=== PATIENT | female | born 1995 | race African-American/Black ===

== ENCOUNTER 2020-03-04 20:31 | Emergency (ER) | payer MEDICAID | END 2020-03-05 01:02 | disposition home or self-care (01) | LOC: D.ER 20:31 → EDBD 20:31 → D.ER 03-05 01:02 | DX: F44.9 Dissociative and conversion disorder, unspecified (principal); F43.21 Adjustment disorder with depressed mood ==

== ENCOUNTER 2020-05-22 16:08 | Emergency (ER) | payer MEDICAID ==
[~2020-05-22] VITALS: Ht 160 cm; Wt 77.3 kg
[2020-05-22 16:14] VITALS: Ht 160 cm; Wt 77.3 kg
[2020-05-22 16:41] LABS: BILIRUBIN NEGATIVE (NEGATIVE); GLUCOSE NEGATIVE (NEGATIVE); KETONE NEGATIVE (NEGATIVE); NITRITE NEGATIVE (NEGATIVE); UROBILINOGEN NORMAL (NORMAL)
[2020-05-22 16:42] LABS: HCG URINE NEGATIVE (NEGATIVE)
[2020-05-22 16:47] LABS: BACTERIA FEW /hpf (NEGATIVE); EPITHELIAL CELLS 0-5 /hpf (0-5); RED CELLS - URINE 0-5 /hpf (0-5)
[2020-05-22] MEDS ORDERED: KEFLEX500 MG PO (16:57)
[2020-05-22 17:25] VITALS: BP 112/66
== END 2020-05-22 17:20 | disposition home or self-care (01) ==
LOC: D.ER 16:08
PROVIDERS: Family Medicine
DX: R30.0 Dysuria (principal); Z20.2 Contact with and (suspected) exposure to infections with a predominantly sexual mode of transmission